=== PATIENT | female | born 1990 | race Two or more races ===

== ENCOUNTER 2019-11-24 09:41 | Inpatient (IN) | payer BC ==
[~2019-11-24] VITALS: Ht 154.9 cm; Wt 73.0 kg
[2019-11-24 21:10] VITALS: BP 118/70
[2019-11-24 21:21] VITALS: BP 118/78
[2019-11-24] MEDS ORDERED: OXYTOCIN 30U/ 0.9% NaCL 500ML 500 ML IV ONE (21:23)
[2019-11-24] MEDS: LACTATED RINGERS 1,000 ML IV SCH (21:23)
[2019-11-24] MEDS ORDERED: NEWBORN KIT ONE (21:26)
[2019-11-24] MEDS ORDERED: LIDOCAINE 1%, 20ML ONE (21:26)
[2019-11-24] MEDS ORDERED: MISOPROSTOL 200 MCG TABLET ONE (21:26)
[2019-11-24] MEDS ORDERED: TERBUTALINE 1 MG/ML, 1ML IVPush PRN (21:30)
[2019-11-24] MEDS ORDERED: FENTANYL PF 100 MCG/2ML IV PRN (21:30)
[2019-11-24] MEDS ORDERED: TERBUTALINE 1 MG/ML, 1ML SQ PRN (21:30)
[2019-11-24] MEDS ORDERED: CALCIUM CARBONATE 500 MG TAB.CHEW PO PRN (21:30)
[2019-11-24] MEDS ORDERED: ONDANSETRON 2MG/ML, 2ML IVPush PRN (21:30)
[2019-11-24] MEDS ORDERED: MISOPROSTOL 25 MCG TABLET ONE (21:48)
[2019-11-24] MEDS: MISOPROSTOL 25 MCG TABLET VG PRN (22:00)
[2019-11-24 22:05] LABS: BASOPHILS # (AUTO) 0.02 x10^3/uL (0-0.1); BASOPHILS % (AUTO) 0 % (0-1); EOSINOPHILS # (AUTO) 0.11 x10^3/uL (0-0.4); EOSINOPHILS % (AUTO) 1 % (1-7); LYMPHOCYTES # (AUTO) 1.68 x10^3/uL (1-3.4); LYMPHOCYTES % (AUTO) 20 % (22-44); MD NO; MEAN CORPUSCULAR HEMOGLOBIN 28.3 pg (27.0-34.8); MEAN CORPUSCULAR HGB CONC 33.6 g/dL (32.4-35.8); MEAN CORPUSCULAR VOLUME 84.3 fL (80-100); MONOCYTES # (AUTO) 0.62 x10^3/uL (0.2-0.8); MONOCYTES % (AUTO) 7 % (2-9); NEUTROPHILS # (AUTO) 6.16 x10^3/uL (1.8-6.8); NEUTROPHILS % (AUTO) 72 % (42-75); PLATELET COUNT 291 x10^3/uL (130-400); RED BLOOD COUNT 3.96 x10^6/uL (3.82-5.3); RED CELL DISTRIBUTION WIDTH 14.3 % (9.6-15.2)
[2019-11-24 22:13] LABS: ALANINE AMINOTRANSFERASE 8 U/L (12-78); ALBUMIN 2.3 g/dL (3.4-5.0); ANION GAP 11 mmol/L (5-15); CALCIUM 9.1 mg/dL (8.5-10.1); CHLORIDE 107 mmol/L (98-107); CREATININE 0.65 mg/dL (0.55-1.02)
[2019-11-24 22:16] LABS: ALKALINE PHOSPHATASE 189 U/L (45-117); BILIRUBIN,TOTAL 0.3 mg/dL (0.2-1.0); TOTAL PROTEIN 6.6 g/dL (6.4-8.2)
[2019-11-24] MEDS ORDERED: INSULIN NPH HUMAN 100 UNIT/ML, 3ML VIAL SQ-INSULIN ONE (22:30)
[2019-11-25] MEDS ORDERED: MISOPROSTOL 25 MCG TABLET ONE (04:53)
[2019-11-25] MEDS: MISOPROSTOL 25 MCG TABLET VG PRN (04:54)
[2019-11-25] MEDS: LACTATED RINGERS 1,000 ML IV SCH ×3 (05:14→21:23)
[2019-11-25] MEDS ORDERED: FENTANYL/BUPIV./NS/PF 250 ML EPIDCONT SCH (06:41)
[2019-11-25] MEDS ORDERED: FENTANYL PF 100 MCG/2ML ONE ×2 (07:01→08:32)
[2019-11-25] MEDS: FENTANYL PF 100 MCG/2ML IVPush PRN ×2 (07:04→08:34)
[2019-11-25] MEDS ORDERED: ONDANSETRON 2MG/ML, 2ML IV PRN (12:00)
[2019-11-25] MEDS ORDERED: MISOPROSTOL 200 MCG TABLET PR PRN (12:00)
[2019-11-25] MEDS ORDERED: DOCUSATE 100 MG CAPSULE ONE (12:00)
[2019-11-25] MEDS ORDERED: SIMETHICONE 80 MG CHEW TAB PO PRN (12:00)
[2019-11-25] MEDS ORDERED: OXYcodone IR 5MG TABLET PO PRN (12:00)
[2019-11-25] MEDS ORDERED: IBUPROFEN 600 MG TABLET ONE (12:00)
[2019-11-25] MEDS ORDERED: PRENATAL VIT/IRON/FA 1 EACH TABLET ONE (12:00)
[2019-11-25] MEDS ORDERED: ACETAMINOPHEN 325 MG TABLET PO PRN (12:00)
[2019-11-25] MEDS: DOCUSATE 100 MG CAPSULE PO PRN (12:04)
[2019-11-25] MEDS: PRENATAL VIT/IRON/FA 1 EACH TABLET PO SCH (12:04)
[2019-11-25] MEDS: IBUPROFEN 600 MG TABLET PO PRN ×2 (12:04→18:31)
[2019-11-25] MEDS ORDERED: OXYTOCIN 30U/ 0.9% NaCL 500ML 500 ML ONE (12:15)
[2019-11-25] MEDS: OXYTOCIN 30U/ 0.9% NaCL 500ML 500 ML IV SCH ×2 (12:18→21:42)
[2019-11-25] MEDS ORDERED: HYDROcodone/APAP 5/325 TABLET ONE (13:14)
[2019-11-25] MEDS ORDERED: OXYcodone/APAP 5/325MG TABLET ONE (13:22)
[2019-11-25] MEDS: OXYcodone/APAP 5/325MG TABLET PO PRN ×3 (13:23→23:23)
[2019-11-25 14:00] VITALS: BP 127/82
[2019-11-25] MEDS: INSULIN REGULAR 100 UNITS/ML, 3ML VIAL SQ-INSULIN SCH ×2 (15:06→19:04)
[2019-11-25] MEDS ORDERED: INSULIN LISPRO 100 UNITS/ML, PEN SS SQ-INSULIN SCH (16:00)
[2019-11-25 18:37] LABS: MEAN CORPUSCULAR HEMOGLOBIN 28.1 pg (27.0-34.8); MEAN CORPUSCULAR HGB CONC 32.8 g/dL (32.4-35.8); MEAN CORPUSCULAR VOLUME 85.9 fL (80-100); MEAN PLATELET VOLUME 8.7 fL (7.4-10.4); PLATELET COUNT 271 x10^3/uL (130-400); RED BLOOD COUNT 3.59 x10^6/uL (3.82-5.3); RED CELL DISTRIBUTION WIDTH 14.7 % (9.6-15.2)
[2019-11-25 19:04] LABS: BASOPHILS % (AUTO) 0 % (0-1); EOSINOPHILS # (AUTO) 0.01 x10^3/uL (0-0.4); EOSINOPHILS % (AUTO) 0 % (1-7); LYMPHOCYTES # (AUTO) 1.11 x10^3/uL (1-3.4); LYMPHOCYTES % (AUTO) 6 % (22-44); MD SCAN; MONOCYTES # (AUTO) 0.72 x10^3/uL (0.2-0.8); MONOCYTES % (AUTO) 4 % (2-9); NEUTROPHILS # (AUTO) 15.97 x10^3/uL (1.8-6.8); NEUTROPHILS % (AUTO) 90 % (42-75)
[2019-11-25 19:45] VITALS: BP 114/75
[2019-11-26] VITALS: BP 113/73
[2019-11-26] MEDS: IBUPROFEN 600 MG TABLET PO PRN ×3 (00:37→18:12)
[2019-11-26] MEDS: DOCUSATE 100 MG CAPSULE PO PRN ×3 (00:39→19:42)
[2019-11-26] MEDS: OXYcodone/APAP 5/325MG TABLET PO PRN ×3 (03:52→19:42)
[2019-11-26 04:00] VITALS: BP 110/71
[2019-11-26] MEDS: LACTATED RINGERS 1,000 ML IV SCH ×3 (05:23→21:23)
[2019-11-26] MEDS: OXYTOCIN 30U/ 0.9% NaCL 500ML 500 ML IV SCH ×2 (07:42→16:50)
[2019-11-26 07:56] VITALS: BP 103/65
[2019-11-26] MEDS: INSULIN REGULAR 100 UNITS/ML, 3ML VIAL SQ-INSULIN SCH ×3 (08:00→20:11)
[2019-11-26 08:04] VITALS: BP 103/65
[2019-11-26] MEDS: PRENATAL VIT/IRON/FA 1 EACH TABLET PO SCH (08:04)
[2019-11-26 20:00] VITALS: BP 121/81
[2019-11-27] MEDS: IBUPROFEN 600 MG TABLET PO PRN ×2 (00:51→06:53)
[2019-11-27] MEDS: OXYcodone/APAP 5/325MG TABLET PO PRN ×3 (00:51→12:23)
[2019-11-27] MEDS: OXYTOCIN 30U/ 0.9% NaCL 500ML 500 ML IV SCH (03:42)
[2019-11-27] MEDS: LACTATED RINGERS 1,000 ML IV SCH (05:23)
[2019-11-27 07:20] VITALS: BP 136/89
[2019-11-27] MEDS ORDERED: IBUP-1222 PO (09:54)
[2019-11-27] MEDS ORDERED: DIPH,PERTUSS(ACELL),TET VAC/PF NC IM-VACC ONE (11:30)
[2019-11-27] MEDS: INSULIN REGULAR 100 UNITS/ML, 3ML VIAL SQ-INSULIN SCH (12:19)
[2019-11-27] MEDS: PRENATAL VIT/IRON/FA 1 EACH TABLET PO SCH (12:20)
[2019-11-27] MEDS: DOCUSATE 100 MG CAPSULE PO PRN (12:20)
== END 2019-11-27 12:45 | disposition home or self-care (01) | DRG 807 ==
LOC: LDIP 20:47 → 2NW 11-25 13:36
PROVIDERS: ADMIT Obstetrics & Gynecology; ATTEND Obstetrics & Gynecology
PROC: 10D07Z6 Extraction of Products of Conception, Vacuum, Via Natural or Artificial Opening (ICD-10-PCS; principal; 2019-11-25)
PROC: 0KQM0ZZ Repair Perineum Muscle, Open Approach (ICD-10-PCS; 2019-11-25)
PROC: 0W8NXZZ Division of Female Perineum, External Approach (ICD-10-PCS; 2019-11-25)
DX: O24.429 Gestational diabetes mellitus in childbirth, unspecified control (principal); Z37.0 Single live birth; O76 Abnormality in fetal heart rate and rhythm complicating labor and delivery; E03.9 Hypothyroidism, unspecified; O99.284 Endocrine, nutritional and metabolic diseases complicating childbirth; O70.1 Second degree perineal laceration during delivery; Z3A.38 38 weeks gestation of pregnancy
CPT/HCPCS: 80053; 82962; 85025; 86592; 86850; 86900; 90715; G0378; J1815; J3010; J2590; J7120

== ENCOUNTER 2020-12-30 23:07 | Inpatient (IN) | payer BC ==
[~2020-12-30] VITALS: Ht 154.9 cm; Wt 68.0 kg
[~2020-12-30 23:07] MED LIST: IBUP-1222 PO
[2020-12-31] MEDS ORDERED: NEWBORN KIT ONE (00:11)
[2020-12-31] MEDS ORDERED: D5%-LACTATED RINGERS 1,000 ML IV SCH (00:30)
[2020-12-31] MEDS ORDERED: METOCLOPRAMIDE 5 MG/ML, 2ML IVPush PRN (00:30)
[2020-12-31] MEDS ORDERED: TERBUTALINE 1 MG/ML, 1ML SQ PRN (00:30)
[2020-12-31] MEDS ORDERED: LACTATED RINGERS 1,000 ML IV SCH (00:30)
[2020-12-31] MEDS ORDERED: OXYTOCIN 30U/ 0.9% NaCL 500ML 500 ML IV ONE (00:30)
[2020-12-31] MEDS ORDERED: SODIUM CITRATE/CITRIC ACID 30 ML UDC PO PRN (00:30)
[2020-12-31] MEDS ORDERED: OXYTOCIN 30U/ 0.9% NaCL 500ML 500 ML IV PRN (00:30)
[2020-12-31] MEDS ORDERED: ONDANSETRON 2MG/ML, 2ML IVPush PRN (00:30)
[2020-12-31] MEDS ORDERED: TERBUTALINE 1 MG/ML, 1ML IVPush PRN (00:30)
[2020-12-31] MEDS ORDERED: FENTANYL PF 100 MCG/2ML IV PRN (00:30)
[2020-12-31 00:46] LABS: BASOPHILS % (AUTO) 0 % (0-1); EOSINOPHILS % (AUTO) 1 % (1-7); LYMPHOCYTES % (AUTO) 21 % (22-44); MEAN CORPUSCULAR HEMOGLOBIN 28.5 pg (27.0-34.8); MEAN CORPUSCULAR HGB CONC 33.1 g/dL (32.4-35.8); MEAN PLATELET VOLUME 8.3 fL (7.4-10.4); MONOCYTES % (AUTO) 6 % (2-9); NEUTROPHILS % (AUTO) 71 % (42-75); PLATELET COUNT 287 x10^3/uL (130-400); RED BLOOD COUNT 4.52 x10^6/uL (3.82-5.3); RED CELL DISTRIBUTION WIDTH 14.2 % (9.6-15.2)
[2020-12-31 00:48] LABS: MD NO
[2020-12-31] MEDS ORDERED: FENTANYL PF 100 MCG/2ML ONE ×2 (00:56→08:11)
[2020-12-31] MEDS: FENTANYL PF 100 MCG/2ML IVPush PRN ×2 (00:57→02:16)
[2020-12-31] MEDS ORDERED: PLEASE ENTER HEIGHT AND WEIGHT MC SCH (01:00)
[2020-12-31] MEDS ORDERED: LIDOCAINE 1%, 20ML ONE (01:02)
[2020-12-31] MEDS ORDERED: OXYTOCIN 30U/ 0.9% NaCL 500ML 500 ML ONE (01:02)
[2020-12-31] MEDS ORDERED: MISOPROSTOL 200 MCG TABLET ONE (01:02)
[2020-12-31] MEDS ORDERED: ONDANSETRON 2MG/ML, 2ML IV PRN (05:30)
[2020-12-31] MEDS ORDERED: ACETAMINOPHEN 325 MG TABLET PO PRN (05:30)
[2020-12-31] MEDS ORDERED: SIMETHICONE 80 MG CHEW TAB PO PRN (05:30)
[2020-12-31] MEDS ORDERED: MISOPROSTOL 200 MCG TABLET PR PRN (05:30)
[2020-12-31] MEDS ORDERED: DOCUSATE 100 MG CAPSULE PO PRN (05:30)
[2020-12-31] MEDS ORDERED: OXYcodone IR 5MG TABLET PO PRN (05:30)
[2020-12-31] MEDS: IBUPROFEN 600 MG TABLET PO PRN ×3 (05:47→18:38)
[2020-12-31] MEDS: OXYTOCIN 30U/ 0.9% NaCL 500ML 500 ML IV SCH ×2 (05:47→15:30)
[2020-12-31 06:08] VITALS: BP 105/62
[2020-12-31] MEDS ORDERED: metFORMIN 850 MG TABLET PO SCH (08:00)
[2020-12-31] MEDS: PRENATAL VIT/IRON/FA 1 EACH TABLET PO SCH (09:00)
[2020-12-31 09:45] VITALS: BP 107/74
[2020-12-31] MEDS: INSULIN LISPRO 100 UNITS/ML, PEN SQ-INSULIN SCH ×3 (11:46→21:00)
[2020-12-31 13:14] LABS: BASOPHILS % (AUTO) 0 % (0-1); EOSINOPHILS % (AUTO) 0 % (1-7); LYMPHOCYTES % (AUTO) 10 % (22-44); MEAN CORPUSCULAR HEMOGLOBIN 28.9 pg (27.0-34.8); MEAN CORPUSCULAR HGB CONC 33.5 g/dL (32.4-35.8); MEAN PLATELET VOLUME 8.3 fL (7.4-10.4); MONOCYTES % (AUTO) 5 % (2-9); NEUTROPHILS % (AUTO) 85 % (42-75); PLATELET COUNT 290 x10^3/uL (130-400); RED BLOOD COUNT 3.57 x10^6/uL (3.82-5.3); RED CELL DISTRIBUTION WIDTH 14.1 % (9.6-15.2)
[2020-12-31 13:42] LABS: MD SCAN
[2020-12-31 14:00] VITALS: BP 106/71
[2020-12-31] MEDS: metFORMIN 500 MG TABLET PO SCH (17:21)
[2020-12-31 19:40] VITALS: BP 115/81
[2020-12-31] MEDS ORDERED: INSULIN NPH HUMAN 100 UNIT/ML, 3ML VIAL SQ-INSULIN SCH (21:00)
[2021-01-01 00:30] VITALS: BP 119/78
[2021-01-01] MEDS: IBUPROFEN 600 MG TABLET PO PRN ×2 (00:46→07:31)
[2021-01-01] MEDS: OXYTOCIN 30U/ 0.9% NaCL 500ML 500 ML IV SCH ×2 (01:30→11:30)
[2021-01-01 04:30] VITALS: BP 93/61
[2021-01-01] MEDS: INSULIN LISPRO 100 UNITS/ML, PEN SQ-INSULIN SCH ×2 (07:00→11:00)
[2021-01-01 07:30] VITALS: BP 112/74
[2021-01-01] MEDS: metFORMIN 500 MG TABLET PO SCH (08:00)
[2021-01-01] MEDS ORDERED: metFORMIN 850 MG TABLET PO SCH (08:00)
[2021-01-01] MEDS: PRENATAL VIT/IRON/FA 1 EACH TABLET PO SCH (08:02)
== END 2021-01-01 13:15 | disposition home or self-care (01) | DRG 807 ==
LOC: LDOP 23:07 → LDIP 23:54 → 2NW 12-31 08:30
PROVIDERS: ADMIT Obstetrics & Gynecology; ATTEND Obstetrics & Gynecology
PROC: 10E0XZZ Delivery of Products of Conception, External Approach (ICD-10-PCS; principal; 2020-12-31)
PROC: 0KQM0ZZ Repair Perineum Muscle, Open Approach (ICD-10-PCS; 2020-12-31)
DX: O42.92 Full-term premature rupture of membranes, unspecified as to length of time between rupture and onset of labor (principal); Z37.0 Single live birth; O24.92 Unspecified diabetes mellitus in childbirth; O99.284 Endocrine, nutritional and metabolic diseases complicating childbirth; E78.5 Hyperlipidemia, unspecified; E03.9 Hypothyroidism, unspecified; Z3A.38 38 weeks gestation of pregnancy; Z79.84 Long term (current) use of oral hypoglycemic drugs; Z83.3 Family history of diabetes mellitus; Z91.19 Patient's noncompliance with other medical treatment and regimen; Z20.822 Contact with and (suspected) exposure to COVID-19; O70.1 Second degree perineal laceration during delivery
CPT/HCPCS: 36415; 82962; 85025; 86592; 86850; 86900; 87635; G0378; J1815; J3010; J2590; J7120